=== PATIENT | female | born 1960 | race Caucasian/White ===

== ENCOUNTER 2018-09-24 11:24 | Emergency (ER) | payer OTHER ==
[~2018-09-24] VITALS: Ht 170.2 cm; Wt 97.5 kg
[~2018-09-24 11:24] MED LIST: COQ1050 MG PO; MULTI-DAY VITA1 EACH PO; VITAMIN D1000 UNI1 PO; VITAMINC500 PO
[2018-09-24] MEDS ORDERED: IBUPROFEN 600600 M1 PO (11:52)
[2018-09-24 13:05] VITALS: BP 137/93
== END 2018-09-24 12:28 | disposition home or self-care (01) ==
LOC: ER 11:24
DX: T22.112A Burn of first degree of left forearm, initial encounter (principal); T31.0 Burns involving less than 10% of body surface; F17.210 Nicotine dependence, cigarettes, uncomplicated; Z98.890 Other specified postprocedural states